=== PATIENT | female | born 1935 | race Caucasian/White ===

== ENCOUNTER → 2017-03-06 | Outpatient (CLI) | payer MEDICARE, BC ==
[~2017-03-06] MED LIST: ASPIRIN EC81 MG PO; BACITRACIN15 G1 TP; COUMADIN2.5 MG PO; COUMADIN5 MG PO; LEVOBUNOLOL 0.5% OU; MAPAP PM (TYLEN1 TAB PO; SYNTHROID112 MCG PO; TOPROL XL DPS25 MG PO; TYLENOL DPS325 MG PO; VITAMIN B-12500 MCG PO; XALATAN2.5 ML OU; ZESTORETIC 10/11 TAB PO
== END | disposition home or self-care (01) ==
LOC: PTH.S 02-13 12:30 → RAD.S 02-13 13:00 → PTH.S 03-01 08:45 → RAD.S 14:30 → PTH.S 15:15
DX: E07.89 Other specified disorders of thyroid (principal)

== ENCOUNTER 2017-03-24 13:09 | Emergency (ER) | payer MEDICARE, BC, OTHER ==
--- NOTE | 2017-03-27 08:15 | ER ---
ADMIT: 03/24/2017 RM/LOC: ER [facility] MR#: [id number] [address] [id number] VICTORIA EVANS [address] [place] [address] Emergency Room Report SEX: F AGE: 81 : 1935 DATE: 03/24/2017 TIME: 1309 hours. Please refer to my T-sheet for complete H and P. Briefly, patient is an 81- year-old who came in because she had this palpitations and felt a little lightheaded while she was working with her coins. She says symptoms had resolved, they only lasted a short time. It happened just prior to arrival to the Emergency Department. PHYSICAL EXAMINATION: VITAL SIGNS: Here blood pressure 145/79, pulse 96, respirations 24, temp 97, sat 96%. GENERAL: No acute distress. HEENT: Grossly normal. LUNGS: Clear. HEART: Irregular regular, but controlled rate. ABDOMEN: Soft. SKIN: No rash. EMERGENCY DEPARTMENT COURSE: CBC was normal. Chemistries normal. Thyroid studies normal. INR is 2.91. EKG was AFib, rate 85, no changes. She felt asymptomatic while here. I had a long discussion, ready for discharge. ASSESSMENT: 1. Palpitations. 2. Dizzy. 3. Atrial fibrillation, chronic in nature, very controlled. PLAN: Continue care. Follow up with Dr. Williamson. Return if worse. Miguelito Leigh MD/ stephanie JOB #: [id number] CC: Miguelito Leigh MD, Attending Physician Ny Williamson MD, Family Physician
[2017-05-13] MEDS ORDERED: LEVOBUNOLOL 0.5% OU (11:05)
[2017-05-13] MEDS ORDERED: SYNTHROID112 MCG PO (11:34)
[2017-05-13] MEDS ORDERED: ZESTORETIC 10/11 TAB PO (11:34)
[2017-05-13] MEDS ORDERED: XALATAN2.5 ML OU (11:34)
[2017-05-13] MEDS ORDERED: ASPIRIN EC81 MG PO (11:35)
[2017-05-13] MEDS ORDERED: COUMADIN2.5 MG PO (11:36)
[2017-05-13] MEDS ORDERED: COUMADIN5 MG PO (11:36)
[2017-05-13] MEDS ORDERED: TOPROL XL DPS25 MG PO (11:37)
[2017-05-13] MEDS ORDERED: MAPAP PM (TYLEN1 TAB PO (11:38)
[2017-05-13] MEDS ORDERED: TYLENOL DPS325 MG PO (11:38)
[2017-05-13] MEDS ORDERED: VITAMIN B-12500 MCG PO (11:38)
[2017-05-13] MEDS ORDERED: BACITRACIN15 G1 TP (11:39)
== END 2017-03-24 15:20 | disposition home or self-care (01) ==
LOC: ER 13:09
DX: I48.2 Chronic atrial fibrillation (principal); R42 Dizziness and giddiness; R00.2 Palpitations; I10 Essential (primary) hypertension; Z90.710 Acquired absence of both cervix and uterus; Z85.850 Personal history of malignant neoplasm of thyroid; Z90.89 Acquired absence of other organs; Z79.899 Other long term (current) drug therapy; Z79.01 Long term (current) use of anticoagulants